=== PATIENT | female | born 1960 | race Caucasian/White ===

== ENCOUNTER → 2016-08-05 | Outpatient (CLI) | payer OTHER ==
[~2016-08-05] MED LIST: ACTEMRA200 MG/10 IV; ADVIL200 M1 PO; ALPHAGAN P10 ML OPHTHALMIC; AMBIEN CR12.5 MG PO; CELEBREX 200 M200 M1 PO; FOLBEE TABLET1 EACH PO; HYDROCODON-ACE1 EAC5 PO; LEUCOVORIN CALCI5 M2 PO; LEVOTHYROXIN0.025 MG PO; LEXAPRO 10 MG T10 M2 PO; LYRICA 50 MG50 MG PO; METHOTREXATE 22.5 MG PO; PREDNISONE 5 MG5 M1 PO; PRENATAL PO; TIZANIDINE HCL4 M1 PO; TOPAMAX200 MG PO; VIRT-VITE PLUS T5 MG PO; VITAMIN D1000 UNI1 PO; VOL-PLUS TABLE1 EAC1 PO; ZOCOR40 MG PO
== END ==
LOC: RAD 14:27
DX: R05 Cough (principal)

== ENCOUNTER 2016-12-26 12:59 | Observation (INO) | payer OTHER ==
[~2016-12-26] VITALS: Ht 170.2 cm; Wt 72.6 kg
--- NOTE | ~2016-12-26 | EKG ---
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[facility] : 1960 Requested By: Elias Dover Order Number: [id number] MD: Enrique Tolliver Measurements Intervals [place] Rate: 65 P: 62 [place]: 161 QRS: 12 QRSD: 110 T: 26 QT: 400 QTc: 416 Interpretive Statements Sinus rhythm RSR' in V1 or V2, probably normal variant No previous ECG available for comparison Electronically Signed On 12-26-2016 13:35:48 CDT by Enrique Tolliver [email or web address] <ELECTRONICALLY SIGNED> By: Enrique Tolliver MD 12/26/16 1335 1312 1312 Enrique Tolliver MD /EMIGDIO
[2016-12-26 13:02] VITALS: BP 141/64
[2016-12-26 13:37] LABS: ABSOLUTE NEUTROPHILS 1.4 thou/uL (1.4-8.2); BASOPHILS 1.4 % (0.0-2.0); EOSINOPHILS 5.2 % (0.0-3.0); HEMATOCRIT 38.3 % (37.0-47.0); HEMOGLOBIN 13.3 gm/dL (12.0-15.0); LYMPHOCYTES 44.8 % (24.0-44.0); MCH 34.9 pg (26.0-34.0); MCHC 34.6 g/dL (28.0-37.0); MCV 100.9 fL (80.0-100.0); MONOCYTES 7.8 % (1.0-8.0); PLATELET COUNT 130 thou/uL (150-400); POLYS 40.8 % (36.0-66.0); RDW 13.4 % (10.5-14.5); WBC 3.5 thou/uL (4.0-11.0)
[2016-12-26 13:38] LABS: MANUAL DIFF NO
[2016-12-26 13:46] LABS: ANION GAP 9 mmol/L (7-16); BUN 18 mg/dL (7-18); CALCIUM 9.6 mg/dL (8.5-10.1); CHLORIDE 107 mmol/L (98-107); CO2 24 mmol/L (21-32); CREATININE 0.8 mg/dL (0.6-1.0); GLUCOSE 92 mg/dL (74-106); POTASSIUM 3.6 mmol/L (3.5-5.1); SODIUM 140 mmol/L (136-145)
[2016-12-26 13:53] LABS: APTT 24.7 Seconds (24.5-32.8); PROTIME 10.4 Seconds (9.3-11.4)
[2016-12-26 13:55] LABS: TROPONIN-I < 0.04 ng/mL (<0.04-0.07)
[2016-12-26 14:05] VITALS: BP 115/50
[2016-12-26 15:18] LABS: CHOLESTEROL 216 mg/dL (<200); HDL CHOLESTEROL 114 mg/dL (>40); LDL CHOLESTEROL 95 mg/dL (<100); TC:HDL 1.9 Ratio (Not establshd); TRIGLYCERIDE 39 mg/dL (<150); VLDL 8 mg/dL (<40)
[2016-12-26 16:57] VITALS: BP 124/58
[2016-12-26 17:00] VITALS: BP 119/75
[2016-12-26 19:30] VITALS: BP 117/62
[2016-12-27] VITALS: BP 102/59
[2016-12-27 03:45] VITALS: BP 101/55
[2016-12-27 08:54] VITALS: BP 104/75
[2016-12-27 10:05] VITALS: BP 104/75
== END 2016-12-27 12:13 | disposition home or self-care (01) ==
LOC: ER 12:59 → EROBS 14:16 → 3W 17:21
PROVIDERS: Hospitalist; Nurse Practitioner
DX: M62.81 Muscle weakness (generalized) (principal); G12.20 Motor neuron disease, unspecified; M06.9 Rheumatoid arthritis, unspecified

== ENCOUNTER → 2018-08-25 | Outpatient (CLI) | payer OTHER ==
[~2018-08-25] MED LIST changes: +ALPHAGAN P15 ML OPHTHALMIC; +AMBIEN 5 MG TABL5 M1 PO; +COLACE100 MG PO; +LEUCOVORIN CALCI PO; +LEXAPRO20 MG PO; +MOMETASONE FURO45 GM TOP; +SIMVASTATIN40 MG PO; +VIRT-VITE TABL1 EACH PO; +ZANAFLEX4 MG PO
== END ==
LOC: RAD 12:44
DX: N28.89 Other specified disorders of kidney and ureter (principal); Z87.442 Personal history of urinary calculi

== ENCOUNTER → 2018-09-20 | Outpatient (CLI) | payer OTHER | LOC: MRI 13:10 | DX: M16.11 Unilateral primary osteoarthritis, right hip (principal) ==

== ENCOUNTER 2018-10-29 17:51 | Emergency (ER) | payer OTHER ==
[~2018-10-29] VITALS: Ht 170.2 cm; Wt 81.7 kg
[2018-10-29 19:03] LABS: ABSOLUTE NEUTROPHILS 1.7 thou/uL (1.4-8.2); BASOPHILS 1.4 % (0.0-2.0); EOSINOPHILS 3.9 % (0.0-3.0); HEMATOCRIT 37.9 % (37.0-47.0); LYMPHOCYTES 38.9 % (24.0-44.0); MCH 35.6 pg (26.0-34.0); MCHC 34.3 g/dL (28.0-37.0); MCV 103.7 fL (80.0-100.0); MONOCYTES 8.2 % (1.0-8.0); PLATELET COUNT 115 thou/uL (150-400); POLYS 47.6 % (36.0-66.0); RBC 3.66 mil/uL (4.20-5.00); RDW 13.6 % (10.5-14.5); WBC 3.6 thou/uL (4.0-11.0)
[2018-10-29 19:11] LABS: ANION GAP 10 mmol/L (7-16); BUN 9 mg/dL (7-18); CALCIUM 9.5 mg/dL (8.5-10.1); CHLORIDE 108 mmol/L (98-107); CO2 24 mmol/L (21-32); CREATININE 0.9 mg/dL (0.6-1.0); GLUCOSE 91 mg/dL (74-106); POTASSIUM 3.3 mmol/L (3.5-5.1); SODIUM 142 mmol/L (136-145)
[2018-10-29 19:19] LABS: TROPONIN-I <0.06 ng/mL (<0.06)
[2018-10-29] MEDS ORDERED: AZITHROMYCIN 2250 MG PO (20:01)
[2018-10-29] MEDS ORDERED: PROAIR HFA8.5 GM INH (20:01)
[2018-10-29] MEDS ORDERED: TESSALON PERLE100 MG PO (20:01)
[2018-10-29 20:20] VITALS: BP 121/44
--- NOTE | 2018-10-30 10:40 | EKG ---
[facility] [place] [address] ELECTROCARDIOGRAM REPORT Name: KIKI LEGGETT [facility] [id number] Admission: 10/29/18 Attend Phys: Discharge: 10/29/18 Date of : 56 Report #: [id number] THIS REPORT FOR: //name// [facility] ED Test Date: 2018-10-29 Test Time: 17:56:31 Pat Name: KIKI LEGGETT Department: Room: Gender: F Tire Installer: AARON : 1960 Requested By: Jamey Bateman Order Number: [id number] MD: Xavier Vizcarra Measurements Intervals [place] Rate: 89 P: 58 AR: 155 QRS: 9 QRSD: 105 T: 9 QT: 380 QTc: 463 Interpretive Statements Sinus rhythm Multiple ventricular premature complexes RSR' in V1 or V2, right VCD Nonspecific ST and T wave abnormality Compared to ECG 12/26/2016 13:12:07 Ventricular premature complex(es) now present Electronically Signed On 10-30-2018 10:40:11 CDT by Xavier Vizcarra [email or web address] <ELECTRONICALLY SIGNED> By: Xavier Vizcarra MD, [facility] 10/30/18 1040 1756 1756 Xavier Vizcarra MD, [facility] /EPI
--- NOTE | 2018-10-31 10:40 | EKG ---
[facility] [employer] [place] [address] ELECTROCARDIOGRAM REPORT Name: KIKI LEGGETT [facility] [id number] Admission: 10/29/18 Attend Phys: Discharge: 10/29/18 Date of : 56 Report #: [id number] THIS REPORT FOR: //name// [facility] ED Test Date: 2018-10-29 Test Time: 18:42:32 Pat Name: KIKI LEGGETT Department: Room: Gender: F Manager Of Administration: jerry : 1960 Requested By: Jamey Bateman Order Number: [id number] MD: Xavier Vizcarra Measurements Intervals [place] Rate: 80 P: 55 [place]: 162 QRS: 7 QRSD: 110 T: 17 QT: 376 QTc: 434 Interpretive Statements Sinus rhythm Ventricular premature complex RSR' in V1 or V2, right VCD Compared to ECG 10/29/2018 17:56:31 No significant change was found Electronically Signed On 10-31-2018 10:40:34 CDT by Xavier Vizcarra [email or web address] <ELECTRONICALLY SIGNED> By: Xavier Vizcarra MD, [facility] 10/31/18 1040 184 41 Xavier Vizcarra MD, [facility] /EPI
== END 2018-10-29 20:21 | disposition home or self-care (01) ==
LOC: ER 17:51
PROVIDERS: Emergency Medicine
DX: J22 Unspecified acute lower respiratory infection (principal); M54.9 Dorsalgia, unspecified; G89.29 Other chronic pain; E78.00 Pure hypercholesterolemia, unspecified; G43.909 Migraine, unspecified, not intractable, without status migrainosus; E03.9 Hypothyroidism, unspecified; Z95.5 Presence of coronary angioplasty implant and graft; Z87.442 Personal history of urinary calculi